=== PATIENT | male | born 1940 | race Caucasian/White ===

== ENCOUNTER 2016-03-18 16:57 | Emergency (ER) | payer OTHER ==
[2016-03-18] MEDS ORDERED: SODIUM CHLORIDE 0.9% (FLUSH) 10 ML SYG IV PRN ×2 (17:48→17:50)
--- NOTE | 2016-03-18 18:07 | RAD ---
EXAM DESCRIPTION: XR CHEST 1 VIEW CLINICAL HISTORY: Afib w/ RVR, chest pain COMPARISON: None available FINDINGS: The cardiomediastinal silhouette is unremarkable. There is no airspace consolidation or pleural effusion. The bronchovascular markings are within normal limits, and the lungs are not hyperinflated. There is no pneumothorax or acute fracture. IMPRESSION: Negative exam. No evidence of pulmonary vascular congestion or cardiomegaly. Electronically signed by: Delbert Bergman DO 03/18/2016 18:05
--- NOTE | 2016-03-18 20:43 | ED.PDOC ---
History of Present Illness - General Chief Complaint: Cardiovascular Problem Stated Complaint: rapid heart rate Time Seen by Provider: 03/18/16 17:15 Source: patient, RN notes reviewed, Vital Signs reviewed Exam Limitations: no limitations - History of Present Illness Initial Comments: Patient is a 75 y/o male with a history of Afib who started feeling his heart racing just after eating at an Buffet. He was short of breath, sweaty, and his left arm hurt. He reported to the Ed as soon as he started feeling this way. Patient had an ablation in [place] in 12/[address] Brooks in [place]. He had an ECHO last week. He has Stage 4 prostate cancer and is currently on chemotherapy, Xtandi, daily. Timing/Duration: 1 hour Severity: moderate Improving Factors: nothing Worsening Factors: nothing Associated Symptoms: diaphoresis, shortness of breath Allergies/Adverse Reactions: Allergies NO KNOWN ALLERGY Allergy (Verified 03/18/16 17:24) Home Medications: Ambulatory Orders Amiodarone HCl 200 mg PO BID #60 tab 03/18/16 Apixaban [Eliquis] 5 mg PO BID 03/18/16 Enzalutamide [Xtandi] 160 mg PO DAILY 03/18/16 Rosuvastatin Calcium [Crestor] 20 mg PO DAILY 03/18/16 Review of Systems - Review of Systems Constitutional: States: diaphoresis EENTM: States: no symptoms reported Respiratory: States: short of breath Cardiology: States: palpitations, other - left arm pain Gastrointestinal/Abdominal: States: no symptoms reported Genitourinary: States: frequency, other - prostate cancer Musculoskeletal: States: back pain, joint pain, muscle pain Skin: States: no symptoms reported Neurological: States: no symptoms reported Endocrine: States: no symptoms reported Hematologic/Lymphatic: States: no symptoms reported Past Medical History (General) - Patient Medical History Hx Cardiac Disorders: Yes - Atrial fib Hx Cancer: Yes - Prostate - Vaccination History Hx Influenza Vaccination: Yes Hx Pneumococcal Vaccination: Yes - Social History Hx Tobacco Use: No Family Medical History - Family History Father Family History: Unknown Living Status: Unknown Physical Exam - Physical Exam General Appearance: Alert, Anxious, Obvious distress Eye Exam: bilateral normal Ears, Nose, Throat: hearing grossly normal, normal ENT inspection Respiratory: lungs clear, normal breath sounds, no respiratory distress, no accessory muscle use Cardiovascular/Chest: normal peripheral pulses, tachycardia, irregularly irregular Gastrointestinal/Abdominal: normal bowel sounds, non tender, soft, no organomegaly Extremity: normal range of motion, pedal edema Neurologic: alert, normal mood/affect, oriented x 3 Skin Exam: normal color, warm/dry Progress - Results/Orders Results/Orders: EKG #3 Sinus rhythm with PACs 76 bpm NML axis NML intervals No ST/T wave changes Comparison EKG #2: Conversion to Sinus rhythm Sinus rhythm with PACs 03/18/16 03/18/16 03/18/16 17:18 17:36 18:47 Temperature 96.5 F L Pulse Rate [ 154 H 80 Apical] Pulse Rate [ 154 H Left Brachial] Respiratory 20 16 Rate Blood Pressure 140/81 117/68 [Left Arm] O2 Sat by Pulse 96 96 Oximetry 03/18/16 20:00 Temperature Pulse Rate [ 78 Apical] Pulse Rate [ Left Brachial] Respiratory 18 Rate Blood Pressure 136/68 [Left Arm] O2 Sat by Pulse 99 Oximetry 03/18/16 17:48 Telemetry .ONCE Sodium Chloride 0.9% (Flush) [Saline Flush Syringe] 10 ml IV PRN PRN EKG Stat Pulse Ox Stat 03/18/16 17:49 Pulse Oximetry Assessment DAILY 03/18/16 17:50 Telemetry .ONCE Sodium Chloride 0.9% (Flush) [Saline Flush Syringe] 10 ml IV PRN PRN EKG Stat 03/18/16 20:45 EKG STAT Laboratory Results WBC 9.3 K/mm3 (4.8-10.8) 03/18/16 17:48 RBC 5.12 M/mm3 (4.70-6.10) 03/18/16 17:48 Hgb 15.0 gm/dL (14.0-18.0) 03/18/16 17:48 Hct 44.5 % (42.0-52.0) 03/18/16 17:48 MCV 86.9 fl (80.0-94.0) 03/18/16 17:48 MCH 29.2 pg (27.0-31.0) 03/18/16 17:48 MCHC 33.6 g/dL (33.0-37.0) 03/18/16 17:48 RDW 14.8 % (11.5-14.5) H 03/18/16 17:48 Plt Count 215 K/mm3 (130-400) 03/18/16 17:48 MPV 9.1 fl (7.40-10.4) 03/18/16 17:48 Absolute Neuts (auto) 4.40 K/uL (1.8-6.8) 03/18/16 17:48 Absolute Lymphs (auto) 3.70 K/uL (1.0-3.4) H 03/18/16 17:48 Absolute Monos (auto) 1.00 K/uL (0.2-0.8) H 03/18/16 17:48 Absolute Eos (auto) 0.20 K/uL (0.0-0.4) 03/18/16 17:48 Absolute Basos (auto) 0.10 K/uL (0.0-0.1) 03/18/16 17:48 Neutrophils % 47.0 % (42.0-78.0) 03/18/16 17:48 Lymphocytes % 39.6 % (20.0-50.0) 03/18/16 17:48 Monocytes % 10.7 % (2.0-9.0) H 03/18/16 17:48 Eosinophils % 1.7 % (1.0-5.0) 03/18/16 17:48 Basophils % 1.0 % (0.0-2.0) 03/18/16 17:48 PT 14.1 SECONDS (9.4-12.5) H 03/18/16 17:48 INR 1.250 03/18/16 17:48 PTT (SP) 35.8 SECONDS (25.1-36.5) 03/18/16 17:48 Sodium 142 mmol/L (135-145) 03/18/16 17:48 Potassium 3.6 mmol/L (3.6-5.0) 03/18/16 17:48 Chloride 104 mmol/L (101-111) 03/18/16 17:48 Carbon Dioxide 30 mmol/L (21-31) 03/18/16 17:48 Anion Gap 11.6 (12-18) L 03/18/16 17:48 BUN 30 mg/dL (7-18) H 03/18/16 17:48 Creatinine 0.85 mg/dL (0.6-1.3) 03/18/16 17:48 BUN/Creatinine Ratio 35.3 (10-20) H 03/18/16 17:48 Random Glucose 113 mg/dL (70-105) H 03/18/16 17:48 Serum Osmolality 290.1 mOsm/L (275-295) 03/18/16 17:48 Calcium 9.2 mg/dL (8.4-10.2) 03/18/16 17:48 Magnesium 2.1 mg/dL (1.8-2.5) 03/18/16 17:48 Total Bilirubin 0.5 mg/dL (0.2-1.0) 03/18/16 17:48 Direct Bilirubin < 0.1 mg/dL (0-0.2) 03/18/16 17:48 Indirect Bilirubin 0.4 mg/dL (0.2-0.8) 03/18/16 17:48 AST 21 IU/L (10-42) 03/18/16 17:48 ALT 21 IU/L (10-60) 03/18/16 17:48 Alkaline Phosphatase 85 IU/L (42-121) 03/18/16 17:48 Creatine Kinase 100 IU/L (38-174) 03/18/16 19:22 CK-MB (CK-2) 2.8 ng/mL (0.0-4.4) 03/18/16 19:22 CK-MB (CK-2) % Not Reportable 03/18/16 19:22 Troponin I 0.06 ng/mL (0.01-0.05) H 03/18/16 19:22 B-Natriuretic Peptide 37.8 pg/ml (0-100) 03/18/16 17:48 Serum Total Protein 7.2 gm/dL (6.4-8.2) 03/18/16 17:48 Albumin 4.3 g/dl (3.2-5.5) 03/18/16 17:48 - EKG/XRAY/CT EKG: Atrial, Fibrillation, RVR - 152 bpm, no ST T wave changes Comments: NML axis, No comparison, Afib with RVR XRAY: chest Xray Comments: No acute process - Consult/PCP Time Called: 21:35 - Time called back Consult/PCP: Dr. Brooks, cardiology Consult Reason/Comments: Pt can go home and F/U in clinic next week. Add amiodarone 200mg BID - Additional EKG/XRAY/Consults EKG #2: Atrial, Fibrillation - 92 bpm, no ST T wave changes, Changed from - EKG #1 - decreased rate Comments: NML axis, Irregular intervals--Afib Departure - Departure Clinical Impression: NSTEMI (non-ST elevated myocardial infarction), Atrial fibrillation with RVR Time of Disposition: 21:45 Disposition: Discharge to Home or Self Care Condition: Good Departure Forms: ED Discharge - Pt. Copy, Patient Portal Self Enrollment Diet: resume usual diet Prescriptions: Amiodarone HCl 200 mg PO BID #60 tab Home Medications: Ambulatory Orders Amiodarone HCl 200 mg PO BID #60 tab 03/18/16 Apixaban [Eliquis] 5 mg PO BID 03/18/16 Enzalutamide [Xtandi] 160 mg PO DAILY 03/18/16 Rosuvastatin Calcium [Crestor] 20 mg PO DAILY 03/18/16 Additional Instructions: Follow up with Dr. Brooks next week. Follow up in ED if symptoms worsen. Transfer to Outside Facility - Transfer Information Accepting Facility: [facility] Reason for Transfer: required specialist not available - Cardiology
[2016-03-18] MEDS ORDERED: AMIODARONE HCL 200 MG TAB PO ONE (21:47)
[2016-03-18 22:21] VITALS: BP 139/70; TEMP 97.9; O2SAT 98
== END 2016-03-18 22:21 | disposition home or self-care (01) ==
LOC: ER 16:57
DX: I21.4 Non-ST elevation (NSTEMI) myocardial infarction (principal); I48.91 Unspecified atrial fibrillation; C61 Malignant neoplasm of prostate; Z79.899 Other long term (current) drug therapy